=== PATIENT | female | born 1975 | race Caucasian/White ===

== ENCOUNTER → 2017-02-28 | Outpatient (CLI) | payer MEDICAID ==
[~2017-02-28] MED LIST: APAP/HYDROCODON1 TA9 PO; BENADRYL25 M1 PO; CIPRO 500MG TA500 MG PO; CLINDAMYCIN HC300 MG PO; FLEXERIL10 MG PO; GABAPENTIN 600600 MG PO; IBU-8800 MG PO; KEFLEX 500MG.500 MG PO; LORTAB 5/500 501 TAB PO; MEDROL 4MG. DOSE4 MG PO; NOMEDS *; NORCO 325 MG-51 TAB PO; PREDNISONE 20MG20 MG PO; VICODIN 5/500 T1 TAB PO; VITAMIN B-1100 MG PO; VOLTAREN75 MG PO; ZOFRAN4 MG PO
--- NOTE | 2017-03-01 06:35 | RADIOLOGY REPORT PS360 ---
MRI-L-SPINE W/WO, MRI-3D RENDERING/MYELOGRAM HISTORY: Low back pain, right-sided low back pain with right leg pain and tingling, interval surgery of the back LUMBAR BACK PAIN ORDERING PHYSICIAN: Rom Rebollar MD PATIENT AGE: 41 years COMPARISON: MRI of 09/17/2014 TECHNIQUE: Standard multiplanar multiecho sequences are performed without and with gadolinium enhancement . 3-D MIP and myelographic images are also rendered and reviewed FINDINGS: There is normal alignment. The spinal cord ends at the L2 level. The lower thoracic region is unremarkable. L1-L2, L2-L3, L3-L4 unremarkable. L4-L5: Status post right-sided laminectomy. Previously noted right paracentral disc protrusion/herniation is no longer apparent. There is mild degenerative disc disease at L4-L5 with increased T2 signal involving the mid and inner aspect of L4 and mid and superior aspect of L5 vertebral bodies. Mild concentric bulging disc is present with small endplate osteophytes. No enhancing epidural fibrosis apparent. There is mild bilateral foraminal narrowing. This is greater on the left compared to the right. L5-S1: Minimal bulging disc with borderline canal stenosis and mild bilateral foraminal narrowing slightly greater on the left compared to the right side. No enhancing lesions are evident. IMPRESSION: 1. Postsurgical changes at L4-L5 status post right-sided laminectomy. Previously noted right paracentral disc protrusion/herniation is no longer apparent. There is mild degenerative disc disease at L4-L5 with increased T2 signal involving the mid and inner aspect of L4 and mid and superior aspect of L5 vertebral bodies. Mild concentric bulging disc is present with small endplate osteophytes. No enhancing epidural fibrosis apparent. There is mild bilateral foraminal narrowing. This is greater on the left compared to the right. 2. Mild bulging disc at L5-S1 with borderline canal stenosis and mild bilateral foraminal narrowing. 3. No recurrent or residual disc herniation . IMPRESSION:
== END ==
LOC: RAD 09:26
DX: M54.5 Low back pain (principal)
CPT/HCPCS: A9576